=== PATIENT | male | born 1975 | race Caucasian/White ===

== ENCOUNTER 2016-04-29 09:41 | Inpatient (IN) | payer OTHER ==
[2016-04-29 10:58] VITALS: BMI 33.4
[2016-04-29] MEDS ORDERED: P-EPHED 60MG/TRIPROLIDI 2.5MG TABLET PO PRN (13:04)
[2016-04-29] MEDS ORDERED: MAG HYDROX/AL HYDROX/SIMETH 30 ML UNIT-DOSE CUP PO PRN (13:04)
[2016-04-29] MEDS ORDERED: ACETAMINOPHEN 325 MG TABLET (FP) PO PRN (13:04)
[2016-04-29] MEDS ORDERED: LOPERAMIDE HCL 2 MG CAPSULE PO PRN (13:04)
[2016-04-29] MEDS ORDERED: MAGNESIUM CITRATE 300 ML BOTTLE PO PRN (13:04)
[2016-04-29] MEDS ORDERED: MENTHOL/PHENOL 1 EACH UD MM PRN (13:04)
[2016-04-29] MEDS ORDERED: guaiFENesin/D-METHORPHAN HB 10 ML UNIT-DOSE CUPS PO PRN (13:04)
[2016-04-29] MEDS ORDERED: MAGNESIUM HYDROX 2400MG/30ML ORAL SUSPENSION 30 ML CUP PO PRN (13:04)
[2016-04-29] MEDS ORDERED: IBUPROFEN 400 MG TABLET (FP) PO PRN (13:04)
--- NOTE | 2016-04-29 13:04 | HP ---
DWAYNE SUAREZ Rehab Assess/Revision - Admission History Admitted to Rehab from: [facility] - Vital signs Vital Signs: Vital Signs Period Temp Pulse Resp BP Sys/Garcia Pulse Ox Last 24 Hr 96.8 F 108 20 119/68 - Findings Detox History & Physical reviewed: Yes Concur with findings: Yes
[2016-04-29] MEDS ORDERED: ALBUTEROL SO4 2.5/IPRATROPIUM 0.5 INH SOL 3 ML VIAL.NEB. NEB PRN (13:06)
[2016-04-29] MEDS ORDERED: ALBUTEROL SO4 2.5/IPRATROPIUM 0.5 INH SOL 3 ML VIAL.NEB. NEB ONE (15:00)
[2016-04-29] MEDS: AMOX TR/POT CLAV 875MG/125MG TABLETS (FP) PO SCH ×2 (17:15→21:31)
[2016-04-29] MEDS: hydrOXYzine PAMOATE 50 MG CAPSULE (FP) PO PRN ×2 (17:15→21:33)
[2016-04-29 20:12] LABS: URINE APPEARANCE CLEAR; URINE BILIRUBIN NEGATIVE (NEGATIVE); URINE BLOOD NEGATIVE (NEGATIVE); URINE COLOR STRAW; URINE GLUCOSE (UA) NEGATIVE (NEGATIVE); URINE KETONE NEGATIVE (NEGATIVE); URINE LEUK ESTERASE NEGATIVE (NEGATIVE); URINE NITRITE NEGATIVE (NEGATIVE); URINE PROTEIN NEGATIVE (NEGATIVE); URINE UROBILINOGEN NEGATIVE E.U./dl (0.2-1.0)
[2016-04-29] MEDS: THIAMINE HCL 100 MG TABLET (FP) PO SCH (21:31)
[2016-04-29] MEDS: BACITRACIN 0.9 GM PACKET TP SCH (21:32)
[2016-04-30] MEDS: hydrOXYzine PAMOATE 50 MG CAPSULE (FP) PO PRN ×5 (06:15→21:57)
--- NOTE | 2016-04-30 06:53 | HP ---
Psychiatrist Admission - Data Date of interview: 04/30/16 Admission source: 6N Identifying data: This is the first [facility] admission for this 40 years old single male, father of 2 children, unemployed, homeless Medical History: Significant for hypertension,bronchial asthma,GERD and a history of abdominal surgery (exploratory laparotomy) in 2009. Smokes cigarettes 1ppd Psychiatric History: Reports seeing a private psychiatrist located on [facility] in the [place] from 2001 to 2009. He was diagnosed with ADHD and Anxiety and prescribed Adderal 30 mg po daily and Xanax 2 mg po BID. 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 In 2009 he moved to [place] and stopped seeing psychiatrist. At present, Reports feeling anxious with inability to focus and experiencing poor sleep. Physical/Sexual Abuse/Trauma History: Denies history of physical, sexual abuse as well as DV relationship Additional Comment: Reports history of multiple midemeanor arrests. Denies being on probation at present Vital Signs: Vital Signs - 24 hr 04/29/16 04/30/16 10:55 00:30 Temperature 96.8 F L Pulse Rate 108 H Respiratory 20 20 Rate Blood Pressure 119/68 Allergies/Adverse Reactions: Allergies Allergy/AdvReac Type Severity Reaction Status Date / Time fish derived Allergy Severe Swelling Verified 04/29/16 13:11 shellfish derived Allergy Severe Swelling Verified 04/29/16 13:11 SEAFOOD Allergy Severe Swelling Uncoded 04/29/16 12:53 NKDA Allergy Uncoded 04/29/16 12:53 Date of last physical exam: 04/19/16 Concur with the findings of this exam: Yes - Substance Abuse/Tx History Hx Alcohol Use: Yes Hx Substance Use: Yes Substance Use Type: Alcohol (Started drinking alcohol at age 8, consumes 3x 6pk daily. Last drink on 04/19/16), Cocaine (Started using cocaine at age 12, consumes 7 grams 1-3 times in the last 30 days. Last used on 04/09/16) Hx Substance Use Treatment: Yes (Multiple inpt detox including 2 @ [facility]. First inpt rehab) - Admission Criteria Previous failed treatment: No Poor recovery environment: Yes Comorbidities: Yes Lacks judgement: Yes Mental Status Exam - Mental Status Exam Alert and Oriented to: Time, Place, Person Cognitive Function: Fair Patient Appearance: Well Groomed Mood: Anxious Affect: Appropriate Patient Behavior: Cooperative Speech Pattern: Clear Voice Loudness: Normal Thought Process: Intact Thought Disorder: Present Hallucinations: Denies Suicidal Ideation: Denies Homicidal Ideation: Denies Insight/Judgement: Fair Sleep: Poorly Appetite: Poor Muscle strength/Tone: Normal Gait/Station: Normal Psychiatric Findings - Problem List ([place] 1, 2,3) (1) Alcohol dependence with uncomplicated withdrawal Current Visit: No Status: Chronic (2) Cocaine dependence Current Visit: No Status: Chronic Qualifiers: Substance use status: uncomplicated Qualified Code(s): F14.20 - Cocaine dependence, uncomplicated (3) Nicotine dependence Current Visit: No Status: Chronic Qualifiers: Nicotine product type: cigarettes Substance use status: uncomplicated Qualified Code(s): F17.210 - Nicotine dependence, cigarettes, uncomplicated (4) ADHD (attention deficit hyperactivity disorder), inattentive type Current Visit: Yes Status: Acute (5) Anxiety disorder Current Visit: Yes Status: Acute (6) Asthma Current Visit: Yes Status: Acute (7) GERD (gastroesophageal reflux disease) Current Visit: Yes Status: Acute (8) HTN (hypertension) Current Visit: Yes Status: Acute - Initial Treatment Plan Initial Treatment Plan: 1) Start Stattera 40 mg po daily and Trazadone 100 mg po HS. Benefits vs Risks of medications discussed with patient and he agreed to try them. 2) Monitor progress
[2016-04-30] MEDS: BACITRACIN 0.9 GM PACKET TP SCH ×2 (09:46→21:09)
[2016-04-30] MEDS: PRENATAL VITAMINS W/ FOLIC ACID TABLET (FP) PO SCH (09:46)
[2016-04-30] MEDS: AMOX TR/POT CLAV 875MG/125MG TABLETS (FP) PO SCH ×2 (09:46→21:09)
[2016-04-30] MEDS: NICOTINE 21 MG/24 HOURS TOPICAL PATCH TD SCH (09:47)
[2016-04-30] MEDS: ALBUTEROL SO4 6.7 GM HFA INHALER IH PRN ×2 (09:48→21:10)
[2016-04-30] MEDS: ATOMOXETINE HCL 40 MG CAPSULE PO SCH (10:22)
[2016-04-30] MEDS: THIAMINE HCL 100 MG TABLET (FP) PO SCH (21:09)
[2016-04-30] MEDS: diphenhydrAMINE HCL 50 MG CAPSULE PO PRN (21:09)
[2016-04-30] MEDS ORDERED: traZODone HCL 100 MG TABLET (FP) PO SCH (22:00)
[2016-05-01] MEDS: diphenhydrAMINE HCL 50 MG CAPSULE PO PRN (01:00)
[2016-05-01] MEDS: hydrOXYzine PAMOATE 50 MG CAPSULE (FP) PO PRN ×5 (06:11→22:22)
[2016-05-01] MEDS: AMOX TR/POT CLAV 875MG/125MG TABLETS (FP) PO SCH ×2 (09:38→21:23)
[2016-05-01] MEDS: NICOTINE 21 MG/24 HOURS TOPICAL PATCH TD SCH (09:38)
[2016-05-01] MEDS: BACITRACIN 0.9 GM PACKET TP SCH ×2 (09:38→21:23)
[2016-05-01] MEDS: PRENATAL VITAMINS W/ FOLIC ACID TABLET (FP) PO SCH (09:38)
[2016-05-01] MEDS: ATOMOXETINE HCL 40 MG CAPSULE PO SCH (09:38)
[2016-05-01] MEDS: ALBUTEROL SO4 6.7 GM HFA INHALER IH PRN ×3 (14:37→21:23)
--- NOTE | 2016-05-01 15:10 | PN ---
Psychiatric Progress Note Vital Signs: Vital Signs Period Temp Pulse Resp BP Sys/Garcia Pulse Ox Last 24 Hr 97.3 F 83 18-18 133/75 Date of Session: 05/01/16 Chief Complaint:: Insomnia HPI: Patient addressing Alcohol, Cocaine comorbid with Nicotine Dependence, ADHD and Anxiety Disorder ROS: Asthma, GERD, HTN Current Medications: Active Medications Generic Name Dose Route Start Last Admin Trade Name Freq PRN Reason Stop Dose Admin Acetaminophen 650 mg 04/29/16 13:04 Tylenol - PO Q4H PRN PAIN Al Hydroxide/Mg Hydroxide 30 ml 04/29/16 13:04 Mylanta Oral Suspension - PO Q6H PRN DYSPEPSIA Albuterol Sulfate 2 puff 04/29/16 13:05 05/01/16 14:37 Ventolin Hfa Inhaler - IH 2 inh Q4H PRN Administration ASTHMA Albuterol/Ipratropium 1 amp 04/29/16 13:06 Duoneb - NEB Q6H PRN SHORTNESS OF BREATH Amoxicillin/Clavulanate Potassium 1 tab 04/29/16 15:00 05/01/16 09:38 Augmentin - 875mg Tablet PO 1 tab BID BRITTNEY Administration Atomoxetine HCl 40 mg 04/30/16 10:00 05/01/16 09:38 Strattera - PO 40 mg DAILY BRITTNEY Administration Bacitracin 0.9 gm 04/29/16 22:00 05/01/16 09:38 Bacitracin - TP 0.9 gm BID BRITTNEY Administration Diphenhydramine HCl 50 mg 04/29/16 13:04 05/01/16 01:00 Benadryl - PO 50 mg HSMR1 PRN Administration INSOMNIA Eucalyptus/Menthol/Phenol/Sorbitol 1 each 04/29/16 13:04 Cepastat Lozenge - MM Q4H PRN SORE THROAT Guaifenesin 10 ml 04/29/16 13:04 Robitussin Dm - PO Q6H PRN COUGH Hydroxyzine Pamoate 50 mg 04/29/16 13:04 05/01/16 14:37 Vistaril - PO 50 mg Q4H PRN Administration AGITATION Ibuprofen 400 mg 04/29/16 13:04 Motrin - PO Q6H PRN SEVERE PAIN Loperamide HCl 4 mg 04/29/16 13:04 Imodium - PO Q6H PRN DIARRHEA Magnesium Citrate 300 ml 04/29/16 13:04 Citroma - PO Q48H PRN CONSTIPATION Magnesium Hydroxide 30 ml 04/29/16 13:04 Milk Of Magnesia - PO DAILY PRN CONSTIPATION Nicotine 21 mg 04/30/16 10:00 05/01/16 09:38 Nicoderm Patch - TD 21 mg DAILY BRITTNEY Administration Multivit/Folic Acid/Iron 1 tab 04/30/16 10:00 05/01/16 09:38 Vitamins (Sjr) - PO 1 tab DAILY BRITTNEY Administration Pseudoephedrine/Triprolidine 1 combo 04/29/16 13:04 Actifed - PO TID PRN NASAL CONGESTION Thiamine HCl 100 mg 04/29/16 22:00 04/30/16 21:09 Vitamin B1 - PO 100 mg HS BRITTNEY Administration Trazodone HCl 150 mg 05/01/16 22:00 Desyrel - PO HS BRITTNEY Medication(s) Change(s): Increase Trazadone dosage to 150 mg po HS Current Side Effect: No Lab tests ordered: No Lab tests reviewed: Yes Provider note:: Patient reports experiencing difficulty to sleep despite taking Trazadone 100 mg po HS. In addition to educating patient on sleep hygiene, increasing Trazadone dosage to 150 mg po HS was discussed with patient and he agreed to try it Total face to face time:: 25 Mental Status Exam - Mental Status Exam Alert and Oriented to: Time, Place, Person Cognitive Function: Fair Patient Appearance: Well Groomed Mood: Hopeful, Euthymic Affect: Appropriate Patient Behavior: Cooperative Speech Pattern: Clear Voice Loudness: Normal Thought Process: Intact Thought Disorder: Not Present Hallucinations: Denies Suicidal Ideation: Denies Homicidal Ideation: Denies Insight/Judgement: Fair Sleep: Poorly Appetite: Good Muscle strength/Tone: Normal Gait/Station: Normal Psychiatric Treatment Plan - Problem List (1) Alcohol dependence with uncomplicated withdrawal Current Visit: No (2) Cocaine dependence Current Visit: No Qualifiers: Substance use status: uncomplicated Qualified Code(s): F14.20 - Cocaine dependence, uncomplicated (3) Nicotine dependence Current Visit: No Qualifiers: Nicotine product type: cigarettes Substance use status: uncomplicated Qualified Code(s): F17.210 - Nicotine dependence, cigarettes, uncomplicated (4) ADHD (attention deficit hyperactivity disorder), inattentive type Current Visit: Yes (5) Anxiety disorder Current Visit: Yes (6) Asthma Current Visit: Yes (7) GERD (gastroesophageal reflux disease) Current Visit: Yes (8) HTN (hypertension) Current Visit: Yes Initial treatment plan: 1) Discontinue Trazadone 100 mg po HS. 2) Start Trazadone 150 mg po HS for insomnia. 3) Monitor progress
[2016-05-01] MEDS: THIAMINE HCL 100 MG TABLET (FP) PO SCH (21:23)
[2016-05-01] MEDS: traZODone HCL 50 MG TABLET (FP) PO SCH (21:23)
[2016-05-02] MEDS: hydrOXYzine PAMOATE 50 MG CAPSULE (FP) PO PRN ×5 (05:51→22:44)
[2016-05-02] MEDS: BACITRACIN 0.9 GM PACKET TP SCH ×2 (09:40→21:33)
[2016-05-02] MEDS: AMOX TR/POT CLAV 875MG/125MG TABLETS (FP) PO SCH ×2 (09:40→21:34)
[2016-05-02] MEDS: PRENATAL VITAMINS W/ FOLIC ACID TABLET (FP) PO SCH (09:40)
[2016-05-02] MEDS: ATOMOXETINE HCL 40 MG CAPSULE PO SCH (09:41)
[2016-05-02] MEDS: ALBUTEROL SO4 6.7 GM HFA INHALER IH PRN ×2 (09:43→17:56)
[2016-05-02] MEDS: NICOTINE 21 MG/24 HOURS TOPICAL PATCH TD SCH (09:45)
[2016-05-02] MEDS: THIAMINE HCL 100 MG TABLET (FP) PO SCH (21:33)
[2016-05-02] MEDS: traZODone HCL 50 MG TABLET (FP) PO SCH (21:33)
[2016-05-03] MEDS: hydrOXYzine PAMOATE 50 MG CAPSULE (FP) PO PRN ×5 (05:47→23:25)
[2016-05-03] MEDS: ALBUTEROL SO4 6.7 GM HFA INHALER IH PRN ×2 (05:47→10:20)
[2016-05-03] MEDS: PRENATAL VITAMINS W/ FOLIC ACID TABLET (FP) PO SCH (10:18)
[2016-05-03] MEDS: BACITRACIN 0.9 GM PACKET TP SCH ×2 (10:21→21:20)
[2016-05-03] MEDS: AMOX TR/POT CLAV 875MG/125MG TABLETS (FP) PO SCH ×2 (10:21→21:21)
[2016-05-03] MEDS: ATOMOXETINE HCL 40 MG CAPSULE PO SCH (10:21)
[2016-05-03] MEDS: NICOTINE 21 MG/24 HOURS TOPICAL PATCH TD SCH (10:21)
[2016-05-03] MEDS: THIAMINE HCL 100 MG TABLET (FP) PO SCH (21:20)
[2016-05-03] MEDS: diphenhydrAMINE HCL 50 MG CAPSULE PO PRN (21:20)
[2016-05-03] MEDS: traZODone HCL 50 MG TABLET (FP) PO SCH (21:20)
[2016-05-04] MEDS: ALBUTEROL SO4 6.7 GM HFA INHALER IH PRN ×2 (05:54→21:08)
[2016-05-04] MEDS: hydrOXYzine PAMOATE 50 MG CAPSULE (FP) PO PRN ×5 (05:54→22:55)
[2016-05-04 06:38] VITALS: PULSE 87
[2016-05-04] MEDS: NICOTINE 21 MG/24 HOURS TOPICAL PATCH TD SCH (10:08)
[2016-05-04] MEDS: AMOX TR/POT CLAV 875MG/125MG TABLETS (FP) PO SCH ×2 (10:08→21:08)
[2016-05-04] MEDS: PRENATAL VITAMINS W/ FOLIC ACID TABLET (FP) PO SCH (10:08)
[2016-05-04] MEDS: BACITRACIN 0.9 GM PACKET TP SCH ×2 (10:08→21:08)
[2016-05-04] MEDS: ATOMOXETINE HCL 40 MG CAPSULE PO SCH (10:09)
[2016-05-04] MEDS: traZODone HCL 50 MG TABLET (FP) PO SCH (21:08)
[2016-05-04] MEDS: THIAMINE HCL 100 MG TABLET (FP) PO SCH (21:08)
[2016-05-04] MEDS: diphenhydrAMINE HCL 50 MG CAPSULE PO PRN (21:08)
[2016-05-05] MEDS: hydrOXYzine PAMOATE 50 MG CAPSULE (FP) PO PRN (06:25)
[2016-05-05 07:17] VITALS: BP 121/70; TEMP 97.7
[2016-05-05] MEDS: ATOMOXETINE HCL 40 MG CAPSULE PO SCH (09:24)
[2016-05-05] MEDS: BACITRACIN 0.9 GM PACKET TP SCH (09:24)
[2016-05-05] MEDS: NICOTINE 21 MG/24 HOURS TOPICAL PATCH TD SCH (09:24)
[2016-05-05] MEDS: PRENATAL VITAMINS W/ FOLIC ACID TABLET (FP) PO SCH (09:24)
[2016-05-05] MEDS: AMOX TR/POT CLAV 875MG/125MG TABLETS (FP) PO SCH (09:24)
--- NOTE | 2016-05-05 09:40 | PN ---
Psychiatric Progress Note Vital Signs: Vital Signs Period Temp Pulse Resp BP Sys/Garcia Pulse Ox Last 24 Hr 97.7 F 87 18-20 121/70 Date of Session: 05/05/16 Chief Complaint:: Psychiatrist Discharge Note(AMA) HPI: Patient addressing Alcohol and Cocaine Dependence comorbid with Nicotine Dependence, Anxiety Disorder and ADHD ROS: Asthma, HTN, GERD were medically managed Current Medications: Active Medications Generic Name Dose Route Start Last Admin Trade Name Freq PRN Reason Stop Dose Admin Acetaminophen 650 mg 04/29/16 13:04 Tylenol - PO Q4H PRN PAIN Al Hydroxide/Mg Hydroxide 30 ml 04/29/16 13:04 Mylanta Oral Suspension - PO Q6H PRN DYSPEPSIA Albuterol Sulfate 2 puff 04/29/16 13:05 05/04/16 21:08 Ventolin Hfa Inhaler - IH 2 inh Q4H PRN Administration ASTHMA Albuterol/Ipratropium 1 amp 04/29/16 13:06 Duoneb - NEB Q6H PRN SHORTNESS OF BREATH Amoxicillin/Clavulanate Potassium 1 tab 04/29/16 15:00 05/05/16 09:24 Augmentin - 875mg Tablet PO 1 tab BID BRITTNEY Administration Atomoxetine HCl 40 mg 04/30/16 10:00 05/05/16 09:24 Strattera - PO 40 mg DAILY BRITTNEY Administration Bacitracin 0.9 gm 04/29/16 22:00 05/05/16 09:24 Bacitracin - TP 0.9 gm BID BRITTNEY Administration Diphenhydramine HCl 50 mg 04/29/16 13:04 05/04/16 21:08 Benadryl - PO 50 mg HSMR1 PRN Administration INSOMNIA Eucalyptus/Menthol/Phenol/Sorbitol 1 each 04/29/16 13:04 Cepastat Lozenge - MM Q4H PRN SORE THROAT Guaifenesin 10 ml 04/29/16 13:04 Robitussin Dm - PO Q6H PRN COUGH Hydroxyzine Pamoate 50 mg 04/29/16 13:04 05/05/16 06:25 Vistaril - PO 50 mg Q4H PRN Administration AGITATION Ibuprofen 400 mg 04/29/16 13:04 Motrin - PO Q6H PRN SEVERE PAIN Loperamide HCl 4 mg 04/29/16 13:04 Imodium - PO Q6H PRN DIARRHEA Magnesium Citrate 300 ml 04/29/16 13:04 Citroma - PO Q48H PRN CONSTIPATION Magnesium Hydroxide 30 ml 04/29/16 13:04 Milk Of Magnesia - PO DAILY PRN CONSTIPATION Nicotine 21 mg 04/30/16 10:00 05/05/16 09:24 Nicoderm Patch - TD 21 mg DAILY BRITTNEY Administration Multivit/Folic Acid/Iron 1 tab 04/30/16 10:00 05/05/16 09:24 Vitamins (Sjr) - PO 1 tab DAILY BRITTNEY Administration Pseudoephedrine/Triprolidine 1 combo 04/29/16 13:04 Actifed - PO TID PRN NASAL CONGESTION Thiamine HCl 100 mg 04/29/16 22:00 05/04/16 21:08 Vitamin B1 - PO 100 mg HS BRITTNEY Administration Trazodone HCl 150 mg 05/01/16 22:00 05/04/16 21:08 Desyrel - PO 150 mg HS BRITTNEY Administration Current Side Effect: No Lab tests ordered: No Lab tests reviewed: Yes Provider note:: Patient requests to leave against medical advice Saying that he is not getting the treatment he needs. When asked to elaborate, he went on talking about issues with an evening shift nurse who refused to accomodate his need. He is on Strattera 40 mg po daily and Trazadone 150 mg po HS. Scripts for 30 days supply of medications are electronically transmitted to [facility] at [address] [place] [address]. He is psychiatrically stable for discharge today Total face to face time:: 25 Mental Status Exam - Mental Status Exam Alert and Oriented to: Time, Place, Person Cognitive Function: Fair Patient Appearance: Well Groomed Mood: Hopeful, Euthymic Affect: Appropriate Patient Behavior: Cooperative Speech Pattern: Clear Voice Loudness: Normal Thought Process: Intact Thought Disorder: Not Present Hallucinations: Denies Suicidal Ideation: Denies Homicidal Ideation: Denies Insight/Judgement: Poor Sleep: Fair Appetite: Good Muscle strength/Tone: Normal Gait/Station: Normal Psychiatric Treatment Plan - Problem List (1) Alcohol dependence with uncomplicated withdrawal Current Visit: No (2) Cocaine dependence Current Visit: No Qualifiers: Substance use status: uncomplicated Qualified Code(s): F14.20 - Cocaine dependence, uncomplicated (3) Nicotine dependence Current Visit: No Qualifiers: Nicotine product type: cigarettes Substance use status: uncomplicated Qualified Code(s): F17.210 - Nicotine dependence, cigarettes, uncomplicated (4) ADHD (attention deficit hyperactivity disorder), inattentive type Current Visit: Yes (5) Anxiety disorder Current Visit: Yes (6) Asthma Current Visit: Yes (7) GERD (gastroesophageal reflux disease) Current Visit: Yes (8) HTN (hypertension) Current Visit: Yes Initial treatment plan: Patient is discharged AMA
== END 2016-05-05 09:30 | disposition left against medical advice (07) | DRG 770 ==
LOC: YASAS 09:41 → Y3W 14:36
PROVIDERS: ADMIT Psychiatry & Neurology Psychiatry; ATTEND Psychiatry & Neurology Psychiatry
PROC: HZ42ZZZ Group Counseling for Substance Abuse Treatment, Cognitive-Behavioral (ICD-10-PCS; principal; 2016-04-29)
DX: F10.20 Alcohol dependence, uncomplicated (principal); F14.20 Cocaine dependence, uncomplicated; F17.210 Nicotine dependence, cigarettes, uncomplicated; F41.9 Anxiety disorder, unspecified; F90.0 Attention-deficit hyperactivity disorder, predominantly inattentive type; J45.909 Unspecified asthma, uncomplicated; I10 Essential (primary) hypertension; K21.9 Gastro-esophageal reflux disease without esophagitis
CPT/HCPCS: 81003; 93005; 93010

== ENCOUNTER 2016-05-30 14:58 | Inpatient (IN) | payer OTHER ==
[2016-05-30 19:43] VITALS: BMI 35.6
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
[2016-05-30] MEDS ORDERED: MAG HYDROX/AL HYDROX/SIMETH 30 ML UNIT-DOSE CUP PO PRN (21:31)
[2016-05-30] MEDS ORDERED: IBUPROFEN 400 MG TABLET (FP) PO PRN (21:31)
[2016-05-30] MEDS ORDERED: MENTHOL/PHENOL 1 EACH UD MM PRN (21:31)
[2016-05-30] MEDS ORDERED: MAGNESIUM HYDROX 2400MG/30ML ORAL SUSPENSION 30 ML CUP PO PRN (21:31)
[2016-05-30] MEDS ORDERED: P-EPHED 60MG/TRIPROLIDI 2.5MG TABLET PO PRN (21:31)
[2016-05-30] MEDS ORDERED: guaiFENesin/D-METHORPHAN HB 10 ML UNIT-DOSE CUPS PO PRN (21:31)
[2016-05-30] MEDS ORDERED: LOPERAMIDE HCL 2 MG CAPSULE PO PRN (21:31)
[2016-05-30] MEDS ORDERED: MAGNESIUM CITRATE 300 ML BOTTLE PO PRN (21:31)
[2016-05-30] MEDS ORDERED: ACETAMINOPHEN 325 MG TABLET (FP) PO PRN (21:31)
[2016-05-30] MEDS ORDERED: NICOTINE POLACRILEX 2 MG GUM BUC PRN (21:38)
[2016-05-30] MEDS ORDERED: ALBUTEROL SO4 2.5/IPRATROPIUM 0.5 INH SOL 3 ML VIAL.NEB. NEB PRN (21:43)
[2016-05-30] MEDS ORDERED: cloNIDine HCL 0.1 MG TABLET PO PRN (21:44)
[2016-05-31] MEDS: chlordiazePOXIDE HCL 25 MG CAPSULE PO SCH ×5 (03:30→22:07)
[2016-05-31] MEDS: BUDESONIDE/FORMETEROL FUMARATE 80/4.5 mcg INHALER IH SCH ×3 (03:30→22:06)
[2016-05-31] MEDS: THIAMINE HCL 100 MG TABLET (FP) PO SCH ×2 (03:31→22:05)
[2016-05-31] MEDS: PRENATAL VITAMINS W/ FOLIC ACID TABLET (FP) PO SCH (10:23)
[2016-05-31] MEDS: NICOTINE 14 MG/24 HOURS TOPICAL PATCH TD SCH (10:23)
[2016-05-31] MEDS: ALBUTEROL SO4 6.7 GM HFA INHALER IH PRN ×3 (10:24→22:06)
[2016-05-31 10:54] LABS: ALBUMIN 3.9 g/dl (3.4-5.0); CALCIUM 8.8 mg/dL (8.5-10.1)
[2016-05-31 10:59] LABS: ALK PHOS 75 U/L (45-117); ANION GAP 12 (8-16); BILIRUBIN,TOTAL 0.3 mg/dL (0.2-1.0); CO2 25 mmol/L (21-32); CREATININE 0.9 mg/dL (0.7-1.3); GLUCOSE,RANDOM 91 mg/dL (74-106); MCH 33.5 pg (25.7-33.7); MCHC 33.8 g/dl (32.0-35.9); MEAN CELL VOLUME 98.9 fl (80-96); MEAN PLT VOLUME 7.5 fl (7.5-11.1); PLATELET COUNT 210 K/MM3 (134-434); RDW 13.2 % (11.9-15.9); SGOT/AST 20 U/L (15-37); SGPT/ALT 29 U/L (12-78); TOT PROT 7.5 g/dl (6.4-8.2); WHITE BLOOD COUNT 5.4 K/mm3 (4.0-10.0)
--- NOTE | 2016-05-31 11:46 | PN ---
S CIWA - CIWA Score Nausea/Vomitin Muscle Tremors: 4-Moderate,w/Arms Extend Anxiety: 4-Mod. Anxious/Guarded Agitation: 4-Moderately Restless Paroxysmal Sweats: 3 Orientation: 0-Oriented Tacttile Disturbances: 1-Very Mild Itch/Numbness Auditory Disturbances: 0-None Visual Disturbances: 0-None Headache: 1-Very Mild CIWA-Ar Total Score: 20 BHS Progress Note (SOAP) Subjective: nausea, sweats, interrupted sleep, anxiety, tremors Objective: 05/31/16 11:44 Vital Signs - 24 hr 05/30/16 05/30/16 05/31/16 19:40 23:46 00:30 Temperature 97.6 F 97.7 F Pulse Rate 122 H 121 H Respiratory 20 18 20 Rate Blood Pressure 134/73 131/72 05/31/16 05/31/16 03:30 06:42 Temperature 97.9 F Pulse Rate 120 H Respiratory 20 18 Rate Blood Pressure 117/70 Laboratory Tests 05/31/16 05/31/16 08:00 08:00 WBC 5.4 RBC 4.30 Hgb 14.4 Hct 42.6 MCV 98.9 H MCHC 33.8 RDW 13.2 Plt Count 210 MPV 7.5 Sodium 141 Potassium 3.7 Chloride 104 Carbon Dioxide 25 Anion Gap 12 BUN 17 D Creatinine 0.9 D Creat Clearance w eGFR > 60 Random Glucose 91 Calcium 8.8 Total Bilirubin 0.3 D AST 20 D ALT 29 D Alkaline Phosphatase 75 Total Protein 7.5 Albumin 3.9 Assessment: 05/31/16 11:44 withdrawal sx, tachycardia Plan: cont detox, prn librium, clonidine, fluids
[2016-05-31] MEDS ORDERED: chlordiazePOXIDE HCL 25 MG CAPSULE PO ONE (13:00)
--- NOTE | 2016-05-31 14:20 | CONSULT ---
[facility] Psychiatric Consult - Data Date of interview: 05/31/16 Admission source: [facility] Identifying data: New admission to [facility] for this 40 y/o male seeking detox treatment on for alcohol and cocaine dependence.Patient is single,a father of two,domiciled,unemployed and supported on Public Assistance. Substance Abuse History: - Smoking Cessation. Smoking history: Current every day smoker. Have you smoked in the past 12 months: Yes. Aproximately how many cigarettes per day: 8. Cigars Per Day: 0. Hx Chewing Tobacco Use: No. Initiated information on smoking cessation: Yes. 'Breaking Loose' booklet given : 05/30/16. - Substance & Tx. History. Hx Alcohol Use: Yes. Hx Substance Use : No. Substance Use Type: Alcohol. Hx Substance Use Treatment: Yes. - Substances Abused. Alcohol. Route: Oral. Frequency: Daily. Amount used: 360 OZ BEER. Age of first use: 8. Date of Last Use: 05/30/16. Confirmed by the patient in this interview. Medical History: Significant for hypertension,bronchial asthma,GERD and a history of abdominal surgery (exploratory laparotomy) in 2009. Psychiatric History: Patient denies. Physical/Sexual Abuse/Trauma History: Patient denies. Additional Comment: Urine Drug Screen Results: BZO-Benzodiazepines.Noted. Mental Status Exam - Mental Status Exam Alert and Oriented to: Time, Place, Person Cognitive Function: Good Patient Appearance: Well Groomed Mood: Hopeful, Euthymic Affect: Appropriate, Normal Range Patient Behavior: Appropriate, Cooperative Speech Pattern: Clear, Appropriate Voice Loudness: Normal Thought Process: Goal Oriented Thought Disorder: Not Present Hallucinations: Denies Suicidal Ideation: Denies Homicidal Ideation: Denies Insight/Judgement: Poor Sleep: Poorly, Difficulty falling asleep (requests trazodone) Appetite: Good Muscle strength/Tone: Normal Gait/Station: Normal Psychiatric Findings - Problem List ([place] 1, 2,3) (1) Alcohol dependence with uncomplicated withdrawal Current Visit: Yes Status: Acute (2) Nicotine dependence Current Visit: Yes Status: Acute Qualifiers: Nicotine product type: cigarettes Substance use status: in withdrawal Qualified Code(s): F17.213 - Nicotine dependence, cigarettes, with withdrawal (3) HTN (hypertension) Current Visit: Yes Status: Chronic Qualifiers: Hypertension type: essential hypertension Qualified Code(s): I10 - Essential (primary) hypertension (4) GERD (gastroesophageal reflux disease) Current Visit: Yes Status: Chronic (5) Asthma Current Visit: Yes Status: Chronic Qualifiers: Asthma severity: mild intermittent Asthma complication type: with status asthmaticus Qualified Code(s): J45.22 - Mild intermittent asthma with status asthmaticus (6) Insomnia Current Visit: Yes Status: Chronic - Initial Treatment Plan Initial Treatment Plan: Psychoeducation.Detoxification.Trazodone 100 mg po hs.Side effects/benefits discussed with the patient.Patient made aware of risk of priapism and he is instructed to stop that medication/seek immediate medical assistance if occurrence of erectile phenomena such as painful/prolonged erection.He agrees with this careplan.Observation.
--- NOTE | 2016-05-31 18:28 | EKG ---
Test Reason : Blood Pressure : / mmHG Vent. Rate : 111 BPM Atrial Rate : 111 BPM P-R Int : 160 ms QRS Dur : 080 ms QT Int : 316 ms P-R-T Axes : 051 013 031 degrees QTc Int : 429 ms SINUS TACHYCARDIA OTHERWISE NORMAL ECG WHEN COMPARED WITH ECG OF 09-APR-2016 17:24, NO SIGNIFICANT CHANGE WAS FOUND Confirmed by SELWYN QUIGLEY MD ([id number]) on 05/31/2016 6:28:22 PM Referred By: Confirmed By:SELWYN QUIGLEY MD
[2016-05-31] MEDS: hydrOXYzine PAMOATE 50 MG CAPSULE (FP) PO PRN (19:34)
[2016-05-31] MEDS: traZODone HCL 100 MG TABLET (FP) PO SCH (22:07)
[2016-06-01] MEDS: ALBUTEROL SO4 6.7 GM HFA INHALER IH PRN ×2 (05:35→17:16)
[2016-06-01] MEDS: chlordiazePOXIDE HCL 25 MG CAPSULE PO SCH ×3 (05:35→17:15)
[2016-06-01] MEDS: chlordiazePOXIDE HCL 25 MG CAPSULE PO PRN ×2 (07:36→12:48)
[2016-06-01] MEDS: NICOTINE 14 MG/24 HOURS TOPICAL PATCH TD SCH (10:21)
[2016-06-01] MEDS: PRENATAL VITAMINS W/ FOLIC ACID TABLET (FP) PO SCH (10:21)
[2016-06-01] MEDS: BUDESONIDE/FORMETEROL FUMARATE 80/4.5 mcg INHALER IH SCH ×2 (10:22→22:20)
[2016-06-01 13:42] LABS: URINE APPEARANCE CLEAR; URINE BILIRUBIN NEGATIVE (NEGATIVE); URINE BLOOD NEGATIVE (NEGATIVE); URINE COLOR LTYELLOW; URINE GLUCOSE (UA) NEGATIVE (NEGATIVE); URINE KETONE NEGATIVE (NEGATIVE); URINE LEUK ESTERASE NEGATIVE (NEGATIVE); URINE NITRITE NEGATIVE (NEGATIVE); URINE PROTEIN NEGATIVE (NEGATIVE); URINE UROBILINOGEN NEGATIVE E.U./dl (0.2-1.0)
--- NOTE | 2016-06-01 15:17 | PN ---
S CIWA - CIWA Score Nausea/Vomitin Muscle Tremors: 4-Moderate,w/Arms Extend Anxiety: 4-Mod. Anxious/Guarded Agitation: 4-Moderately Restless Paroxysmal Sweats: No Perspiration Orientation: 0-Oriented Tacttile Disturbances: 1-Very Mild Itch/Numbness Auditory Disturbances: 0-None Visual Disturbances: 0-None Headache: 2-Mild CIWA-Ar Total Score: 18 BHS Progress Note (SOAP) Subjective: Tremor, anxious, nausea, sweating, interrupted sleep Objective: 06/01/16 15:16 Last Vital Signs Temp Pulse Resp BP Pulse Ox 97.5 F L 107 H 18 137/86 06/01/16 14:12 06/01/16 14:12 06/01/16 14:12 06/01/16 14:12 Laboratory Tests 05/31/16 05/31/16 05/31/16 08:00 08:00 08:00 WBC 5.4 RBC 4.30 Hgb 14.4 Hct 42.6 MCV 98.9 H MCHC 33.8 RDW 13.2 Plt Count 210 MPV 7.5 Sodium 141 Potassium 3.7 Chloride 104 Carbon Dioxide 25 Anion Gap 12 BUN 17 D Creatinine 0.9 D Creat Clearance w eGFR > 60 Random Glucose 91 Calcium 8.8 Total Bilirubin 0.3 D AST 20 D ALT 29 D Alkaline Phosphatase 75 Total Protein 7.5 Albumin 3.9 Urine Color Urine Appearance Urine pH Ur Specific [place] Urine Protein Urine Glucose (UA) Urine Ketones Urine Blood Urine Nitrite Urine Bilirubin Urine Urobilinogen Ur Leukocyte Esterase RPR Titer Nonreactive 06/01/16 13:15 WBC RBC Hgb Hct MCV MCHC RDW Plt Count MPV Sodium Potassium Chloride Carbon Dioxide Anion Gap BUN Creatinine Creat Clearance w eGFR Random Glucose Calcium Total Bilirubin AST ALT Alkaline Phosphatase Total Protein Albumin Urine Color Ltyellow Urine Appearance Clear Urine pH 6.0 Ur Specific [place] 1.011 Urine Protein Negative Urine Glucose (UA) Negative Urine Ketones Negative Urine Blood Negative Urine Nitrite Negative Urine Bilirubin Negative Urine Urobilinogen Negative Ur Leukocyte Esterase Negative RPR Titer Labs noted Assessment: 06/01/16 15:17 Withdrawal symptoms Plan: Continue detox
[2016-06-01] MEDS: hydrOXYzine PAMOATE 50 MG CAPSULE (FP) PO PRN (18:43)
[2016-06-01] MEDS: traZODone HCL 100 MG TABLET (FP) PO SCH (22:19)
[2016-06-01] MEDS: THIAMINE HCL 100 MG TABLET (FP) PO SCH (22:19)
[2016-06-01] MEDS: diphenhydrAMINE HCL 50 MG CAPSULE PO PRN (22:20)
[2016-06-01] MEDS: chlordiazePOXIDE 5 MG CAPSULE PO SCH (22:20)
[2016-06-02] MEDS: chlordiazePOXIDE 5 MG CAPSULE PO SCH ×3 (05:30→17:22)
[2016-06-02] MEDS: ALBUTEROL SO4 6.7 GM HFA INHALER IH PRN ×3 (05:30→22:20)
[2016-06-02] MEDS: hydrOXYzine PAMOATE 50 MG CAPSULE (FP) PO PRN ×3 (08:47→19:37)
[2016-06-02] MEDS: chlordiazePOXIDE HCL 25 MG CAPSULE PO PRN ×2 (08:47→13:08)
[2016-06-02] MEDS: BUDESONIDE/FORMETEROL FUMARATE 80/4.5 mcg INHALER IH SCH ×2 (10:18→22:20)
[2016-06-02] MEDS: NICOTINE 14 MG/24 HOURS TOPICAL PATCH TD SCH (10:18)
[2016-06-02] MEDS: PRENATAL VITAMINS W/ FOLIC ACID TABLET (FP) PO SCH (10:18)
--- NOTE | 2016-06-02 11:23 | PN ---
BHS Progress Note (SOAP) Subjective: ANXIETY,SWEATS,FATIGUE. Objective: 06/02/16 11:23 Vital Signs Temperature 97.0 F L 06/02/16 10:57 Pulse Rate 92 H 06/02/16 10:57 Respiratory Rate 20 06/02/16 10:57 Blood Pressure 136/81 06/02/16 10:57 O2 Sat by Pulse Oximetry (%) Assessment: 06/02/16 11:23 WITHDRAWAL SX Plan: CONTINUE DETOX
[2016-06-02] MEDS: THIAMINE HCL 100 MG TABLET (FP) PO SCH (22:20)
[2016-06-02] MEDS: traZODone HCL 100 MG TABLET (FP) PO SCH (22:21)
[2016-06-02] MEDS: chlordiazePOXIDE HCL 10 MG CAPSULE PO SCH (22:21)
[2016-06-02] MEDS: diphenhydrAMINE HCL 50 MG CAPSULE PO PRN (22:21)
[2016-06-03] MEDS: chlordiazePOXIDE HCL 10 MG CAPSULE PO SCH (05:34)
[2016-06-03 06:41] VITALS: BP 131/73; PULSE 94; TEMP 96.1
[2016-06-03] MEDS: PRENATAL VITAMINS W/ FOLIC ACID TABLET (FP) PO SCH (09:09)
[2016-06-03] MEDS: BUDESONIDE/FORMETEROL FUMARATE 80/4.5 mcg INHALER IH SCH (09:09)
[2016-06-03] MEDS: NICOTINE 14 MG/24 HOURS TOPICAL PATCH TD SCH (09:10)
--- NOTE | 2016-06-03 12:08 | DS ---
[facility] Detox Discharge Summary Admission Date: 05/30/16 Discharge Date: 06/03/16 - History Present History: Alcohol Dependence Additional Comments: DETOX COMPLETED Pertinent Past History: ASTHMA HYPERTENSION GERD FATTY LIVER HX DEPRESSION/ANXIETY - Physical Exam Results Vital Signs: Vital Signs Temperature 96.1 F L 06/03/16 06:41 Pulse Rate 94 H 06/03/16 06:41 Respiratory Rate 18 06/03/16 06:41 Blood Pressure 131/73 06/03/16 06:41 O2 Sat by Pulse Oximetry (%) Pertinent Admission Physical Exam Findings: WITHDRAWAL SX Laboratory Last Values WBC 5.4 K/mm3 (4.0-10.0) 05/31/16 08:00 RBC 4.30 M/mm3 (4.00-5.60) 05/31/16 08:00 Hgb 14.4 GM/dL (11.7-16.9) 05/31/16 08:00 Hct 42.6 % (35.4-49) 05/31/16 08:00 MCV 98.9 fl (80-96) H 05/31/16 08:00 MCHC 33.8 g/dl (32.0-35.9) 05/31/16 08:00 RDW 13.2 % (11.9-15.9) 05/31/16 08:00 Plt Count 210 K/MM3 (134-434) 05/31/16 08:00 MPV 7.5 fl (7.5-11.1) 05/31/16 08:00 Sodium 141 mmol/L (136-145) 05/31/16 08:00 Potassium 3.7 mmol/L (3.5-5.1) 05/31/16 08:00 Chloride 104 mmol/L (98-107) 05/31/16 08:00 Carbon Dioxide 25 mmol/L (21-32) 05/31/16 08:00 Anion Gap 12 (8-16) 05/31/16 08:00 BUN 17 mg/dL (7-18) D 05/31/16 08:00 Creatinine 0.9 mg/dL (0.7-1.3) D 05/31/16 08:00 Creat Clearance w eGFR > 60 (>60) 05/31/16 08:00 Random Glucose 91 mg/dL (74-106) 05/31/16 08:00 Calcium 8.8 mg/dL (8.5-10.1) 05/31/16 08:00 Total Bilirubin 0.3 mg/dL (0.2-1.0) D 05/31/16 08:00 AST 20 U/L (15-37) D 05/31/16 08:00 ALT 29 U/L (12-78) D 05/31/16 08:00 Alkaline Phosphatase 75 U/L (45-117) 05/31/16 08:00 Total Protein 7.5 g/dl (6.4-8.2) 05/31/16 08:00 Albumin 3.9 g/dl (3.4-5.0) 05/31/16 08:00 Urine Color Ltyellow 06/01/16 13:15 Urine Appearance Clear 06/01/16 13:15 Urine pH 6.0 (5.0-8.0) 06/01/16 13:15 Ur Specific [place] 1.011 (1.001-1.035) 06/01/16 13:15 Urine Protein Negative (NEGATIVE) 06/01/16 13:15 Urine Glucose (UA) Negative (NEGATIVE) 06/01/16 13:15 Urine Ketones Negative (NEGATIVE) 06/01/16 13:15 Urine Blood Negative (NEGATIVE) 06/01/16 13:15 Urine Nitrite Negative (NEGATIVE) 06/01/16 13:15 Urine Bilirubin Negative (NEGATIVE) 06/01/16 13:15 Urine Urobilinogen Negative E.U./dl (0.2-1.0) 06/01/16 13:15 Ur Leukocyte Esterase Negative (NEGATIVE) 06/01/16 13:15 RPR Titer Nonreactive (NONREACTIVE) 05/31/16 08:00 - Treatment Hospital Course: Detox Protocol Followed, Detoxed Safely, Responded well, Discharged Condition Good - Medication Discharge Medications: Ambulatory Orders Albuterol Sulfate Inhaler - [Ventolin HFA Inhaler -] 2 inh PO Q4H PRN 10/10/14 Amox-Tr/K Cl [Augmentin - 875Mg Tablet] 1 tab PO Q12H 04/29/16 Atomoxetine HCl [Strattera -] 40 mg PO DAILY #30 capsule 05/05/16 Trazodone HCl [Desyrel -] 150 mg PO HS #30 tablet 05/05/16 Trazodone HCl 100 mg PO HS #30 tablet 05/31/16 - Diagnosis (1) Alcohol dependence with uncomplicated withdrawal Status: Acute (2) Nicotine dependence Status: Chronic Qualifiers: Nicotine product type: cigarettes Substance use status: in withdrawal Qualified Code(s): F17.213 - Nicotine dependence, cigarettes, with withdrawal (3) Asthma Status: Chronic Qualifiers: Asthma severity: mild intermittent Asthma complication type: with status asthmaticus Qualified Code(s): J45.22 - Mild intermittent asthma with status asthmaticus (4) GERD (gastroesophageal reflux disease) Status: Chronic Qualifiers: Esophagitis presence: without esophagitis Qualified Code(s): K21.9 - Gastro-esophageal reflux disease without esophagitis (5) HTN (hypertension) Status: Chronic Qualifiers: Hypertension type: essential hypertension Qualified Code(s): I10 - Essential (primary) hypertension (6) Insomnia Status: Chronic - AMA Did Patient Leave Against Medical Advice: No
== END 2016-06-03 09:15 | disposition home or self-care (01) | DRG 775 ==
LOC: YASAS 14:58 → Y3N 22:00
PROVIDERS: ADMIT Internal Medicine; ATTEND Internal Medicine
PROC: HZ2ZZZZ Detoxification Services for Substance Abuse Treatment (ICD-10-PCS; principal; 2016-06-03)
DX: F10.230 Alcohol dependence with withdrawal, uncomplicated (principal); F17.213 Nicotine dependence, cigarettes, with withdrawal; I10 Essential (primary) hypertension; J45.22 Mild intermittent asthma with status asthmaticus; K21.9 Gastro-esophageal reflux disease without esophagitis; G47.00 Insomnia, unspecified
CPT/HCPCS: 36415; 80053; 81003; 85027; 86593; 93005; 93010

== ENCOUNTER 2016-06-30 09:28 | Inpatient (IN) | payer OTHER ==
[2016-06-30 09:55] VITALS: BMI 35.6
--- NOTE | 2016-06-30 12:58 | HP ---
COWS - Scale Resting Pulse: 2= NM 101-120 Sweatin= Chills/Flushing Restless Observation: 3= Extraneous Movement Pupil Size: 2= Moderately Dilated Bone or Joint Aches: 4=Acute Joint/Muscle Pain Runny Nose/ Eye Tearin= Nasal Congestion GI Upset > 30mins: 3= Vomiting/Diarrhea Tremor Observation: 2= Slight Tremor Visible Yawning Observation: 1= 1-2x During Session Anxiety or Irritability: 2=Irritable/Anxious Goose Flesh Skin: 0=Smooth Skin COWS Score: 21 CIWA Score - CIWA Score Nausea/Vomitin (N/V/D) Muscle Tremors: 4-Moderate,w/Arms Extend Anxiety: 4-Mod. Anxious/Guarded Agitation: 4-Moderately Restless Paroxysmal Sweats: 2 Orientation: 0-Oriented Tacttile Disturbances: 3-Moderate Itch/Numb/Burn Auditory Disturbances: 0-None Visual Disturbances: 0-None Headache: 0-None Present CIWA-Ar Total Score: 22 Admission ROS S - HPI Chief Complaint: DETOX TX FOR ALCOHOL AND HEROIN DEPENDENCE Allergies/Adverse Reactions: Allergies Allergy/AdvReac Type Severity Reaction Status Date / Time fish derived Allergy Severe Swelling Verified 06/30/16 10:34 shellfish derived Allergy Severe Swelling Verified 06/30/16 10:34 SEAFOOD Allergy Severe Swelling Uncoded 06/30/16 10:34 NKDA Allergy Uncoded 06/30/16 10:34 History of Present Illness: 40 Y/O H/M WITH A HX OF ALCOHOL,HEROIN AND COCAINE DEPENDENCE SEEKING DETOX TX Exam Limitations: No Limitations, Intoxication - Ebola screening Have you traveled outside of the country in the last 21 days: No Have you had contact with anyone from an Ebola affected area: No Have you been sick,other than usual withdrawal symptoms: No Do you have a fever: No - Review of Systems Constitutional: Chills, Diaphoresis, Loss of Appetite, Night Sweats, Changes in sleep EENT: reports: Blurred Vision, Tearing, Nose Congestion Respiratory: reports: Shortness of Breath (HX ASTHMA), Wheezing Cardiac: reports: Lightheadedness GI: reports: Constipated, Diarrhea, Nausea, Poor Appetite, Poor Fluid Intake, Vomiting : reports: Dysuria Musculoskeletal: reports: Back Pain (LBP), Muscle Pain Integumentary: reports: Bruising (LEFT AND RIGHT KNEES DUE TO FALL ON 3/4/17 DUE TO ALCOHOL INTOXICATION-"[facility]") Neuro: reports: Tremors, Unsteady Gait, Dizziness Endocrine: reports: No Symptoms Reported Hematology: reports: No Symptoms Reported Psychiatric: reports: Orientated x3, Anxious, Depressed Other Systems: Reviewed and Negative Patient History - Patient Medical History Hx Anemia: No Hx Asthma: Yes (Pt is on MDI.) Hx Chronic Obstructive Pulmonary Disease (COPD): No Hx Cancer: No Hx Cardiac Disorders: No Hx Congestive Heart Failure: No Hx Hypertension: Yes (not on meds.) Hx Hypercholesterolemia: No Hx Pacemaker: No HX Cerebrovascular Accident: No Hx Seizures: No Hx Dementia: No Hx Diabetes: No Hx Gastrointestinal Disorders: No Hx Liver Disease: Yes (FATTY LIVER) Hx Genitourinary Disorders: No Hx Sexually Transmitted Disorders: No Hx Renal Disease (ESRD): No Hx Thyroid Disease: No Hx Human Immunodeficiency Virus (HIV): No (NEGATIVE HX) Hx Hepatitis C: No (NEGATIVE TEST HX) Hx Depression: Yes Hx Suicide Attempt: No Hx Bipolar Disorder: No Hx Schizophrenia: No - Patient Surgical History Past Surgical History: Yes Hx Neurologic Surgery: No Hx Cataract Extraction: No Hx Cardiac Surgery: No Hx Lung Surgery: No Hx Breast Surgery: No Hx Breast Biopsy: No Hx Abdominal Surgery: Yes (09/2015 colon resection for strangulated colon.) Hx Appendectomy: No Hx Cholecystectomy: No Hx Genitourinary Surgery: No Hx Orthopedic Surgery: No Anesthesia Reaction: No - PPD History Previous Implant?: Yes Documented Results: Negative w/proof Implanted On Prior [facility] Admission?: Yes Date: 04/21/16 Results: 0 mm PPD to be Administered?: No - Reproductive History Patient is a Female of Child Bearing Age (11 -55 yrs old): No (MALE) - Smoking Cessation Smoking history: Current every day smoker Have you smoked in the past 12 months: Yes Aproximately how many cigarettes per day: 10 Cigars Per Day: 0 Hx Chewing Tobacco Use: No Initiated information on smoking cessation: Yes 'Breaking Loose' booklet given: 06/30/16 - Substance & Tx. History Hx Alcohol Use: Yes (BEER) Hx Substance Use: Yes (HEROIN/COCAINE) Substance Use Type: Alcohol, Cocaine, Heroin Hx Substance Use Treatment: Yes ([facility]-DETOX) - Substances Abused Heroin Route: Inhalation Frequency: Daily Amount used: 6 bags Age of first use: 40 Date of Last Use: 06/30/16 Alcohol Route: Oral Frequency: Daily Amount used: 18 pk beer Age of first use: 8 Date of Last Use: 06/30/16 Cocaine Route: Inhalation Frequency: 1-3 times last 30 days Amount used: 8 ball Age of first use: 12 Date of Last Use: 05/01/16 Family Disease History - Family Disease History Family Disease History: Diabetes: Grandparent, Father, Heart Disease: Grandparent, Father, Other: Brother (HEROIN DEPENDENT ) Admission Physical Exam [facility] - Vital Signs Vital Signs: Vital Signs - 24 hr 06/30/16 09:51 Temperature 97.7 F Pulse Rate 103 H Respiratory 20 Rate Blood Pressure 140/90 - Physical General Appearance: Yes: Moderate Distress, Alcohol on Breath, Intoxicated, Obese, Irritable, Sweating, Anxious HEENTM: Yes: EOMI, Normocephalic, SELENA, Pharynx Normal, Nasal Congestion, Rhinorrhea Respiratory: Yes: Chest Non-Tender, Normal Breath Sounds, No Respiratory Distress, Rhonchi, Wheezing Neck: Yes: Supple, Trachea in good position Breast: Yes: Breast Exam Deferred Cardiology: Yes: Regular Rhythm, S1, S2, Tachycardia Abdominal: Yes: Normal Bowel Sounds, Non Tender, Soft Genitourinary: Yes: Other (N/C) Back: Yes: Within Normal Limits Musculoskeletal: Yes: full range of Motion, Gait Steady Extremities: Yes: Normal Range of Motion, Non-Tender, Tremors 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 NML intact, Fully Oriented, Alert Integumentary: Yes: Dry, Warm Lymphatic: Yes: Within Normal Limits - Diagnostic (1) Alcohol dependence with uncomplicated withdrawal Current Visit: Yes Status: Acute (2) Asthma Current Visit: Yes Status: Chronic Qualifiers: Asthma severity: mild intermittent Asthma complication type: with status asthmaticus Qualified Code(s): J45.22 - Mild intermittent asthma with status asthmaticus (3) Cocaine dependence Current Visit: No Status: Inactive Qualifiers: Substance use status: uncomplicated Qualified Code(s): F14.20 - Cocaine dependence, uncomplicated (4) Depression with anxiety Current Visit: Yes Status: Chronic (5) GERD (gastroesophageal reflux disease) Current Visit: Yes Status: Chronic Qualifiers: Esophagitis presence: without esophagitis Qualified Code(s): K21.9 - Gastro-esophageal reflux disease without esophagitis (6) HTN (hypertension) Current Visit: Yes Status: Chronic Qualifiers: Hypertension type: essential hypertension Qualified Code(s): I10 - Essential (primary) hypertension (7) Nicotine dependence Current Visit: Yes Status: Chronic Qualifiers: Nicotine product type: cigarettes Substance use status: in withdrawal Qualified Code(s): F17.213 - Nicotine dependence, cigarettes, with withdrawal Cleared for Admission S - Detox or Rehab [facility] Level of Care: Medically Managed Detox Regimen/Protocol: Methadone/Librium [facility] Breath Alcohol Content Breath Alcohol Content: 0.240 Urine Drug Screen - Results Drug Screen Negative: No Urine Drug Screen Results: OPI-Opiates, BZO-Benzodiazepines
[2016-06-30] MEDS ORDERED: NICOTINE POLACRILEX 2 MG GUM BC PRN (13:06)
[2016-06-30] MEDS ORDERED: MAGNESIUM HYDROX 2400MG/30ML ORAL SUSPENSION 30 ML CUP PO PRN (13:06)
[2016-06-30] MEDS ORDERED: MENTHOL/PHENOL 1 EACH UD MM PRN (13:06)
[2016-06-30] MEDS ORDERED: guaiFENesin/D-METHORPHAN HB 10 ML UNIT-DOSE CUPS PO PRN (13:06)
[2016-06-30] MEDS ORDERED: MAG HYDROX/AL HYDROX/SIMETH 30 ML UNIT-DOSE CUP PO PRN (13:06)
[2016-06-30] MEDS ORDERED: ACETAMINOPHEN 325 MG TABLET (FP) PO PRN (13:06)
[2016-06-30] MEDS ORDERED: P-EPHED 60MG/TRIPROLIDI 2.5MG TABLET PO PRN (13:06)
[2016-06-30] MEDS ORDERED: MAGNESIUM CITRATE 300 ML BOTTLE PO PRN (13:06)
[2016-06-30] MEDS ORDERED: LOPERAMIDE HCL 2 MG CAPSULE PO PRN (13:06)
[2016-06-30] MEDS ORDERED: IBUPROFEN 400 MG TABLET (FP) PO PRN (13:06)
[2016-06-30] MEDS ORDERED: ALBUTEROL SO4 2.5/IPRATROPIUM 0.5 INH SOL 3 ML VIAL.NEB. NEB PRN ×2 (13:13→13:41)
[2016-06-30] MEDS ORDERED: METHADONE HCL 10 MG TABLET (FOR DETOX USE ONLY) PO ONE ×2 (13:45→23:00)
[2016-06-30] MEDS ORDERED: chlordiazePOXIDE HCL 25 MG CAPSULE PO ONE (13:45)
[2016-06-30] MEDS: NICOTINE 14 MG/24 HOURS TOPICAL PATCH TD SCH (13:46)
[2016-06-30] MEDS: ALBUTEROL SO4 2.5/IPRATROPIUM 0.5 INH SOL 3 ML VIAL.NEB. NEB SCH ×3 (13:48→22:18)
--- NOTE | 2016-06-30 13:55 | CONSULT ---
[facility] Psychiatric Consult - Data Date of interview: 06/30/16 Admission source: [facility] Identifying data: This is 40 years old male with no psychiatric hospitalization history intoxicated with: Alcohol Cocaine, Heroin and Nuicotine Substance Abuse History: - Smoking Cessation. Smoking history: Current every day smoker. Have you smoked in the past 12 months: Yes. Aproximately how many cigarettes per day: 10. Cigars Per Day: 0. Hx Chewing Tobacco Use: No. Initiated information on smoking cessation: Yes. 'Breaking Loose' booklet given : 06/30/16. - Substance & Tx. History. Hx Alcohol Use: Yes (BEER). Hx Substance Use: Yes (HEROIN/COCAINE). Substance Use Type: Alcohol, Cocaine, Heroin. Hx Substance Use Treatment: Yes ([facility]-DETOX). - Substances Abused. * * Heroin. Route: Inhalation. Frequency: Daily. Amount used: 6 bags. Age of first use: 40. Date of Last Use: 06/30/16. Alcohol. Route: Oral. Frequency: Daily. Amount used: 18 pk beer. Age of first use: 8. Date of Last Use: 06/30/16. Cocaine. Route: Inhalation. Frequency: 1-3 times last 30 days. Amount used: 8 ball. Age of first use: 12. Date of Last Use: Medical History: Asthma, GERD, HTN, HepC+ Psychiatric History: Patient reports anxiety and deporewssion history, ADHD, insomnia, reports taking prior to admission: Trazodone 150mg po qhs Physical/Sexual Abuse/Trauma History: Denies Additional Comment: Trazodone 150mg po qhs Mental Status Exam - Mental Status Exam Alert and Oriented to: Person Cognitive Function: Fair Patient Appearance: Well Groomed Mood: Apprehensive Affect: Mood Congruent Patient Behavior: Cooperative Speech Pattern: Appropriate Voice Loudness: Mildly Soft/Quiet Thought Process: Goal Oriented Thought Disorder: Being Controlled Hallucinations: Denies Suicidal Ideation: Denies Homicidal Ideation: Denies Insight/Judgement: Fair Sleep: Difficulty falling asleep Appetite: Weight gain Muscle strength/Tone: Normal Gait/Station: Normal Additional Comments: Trazodone 150mg po qhs Psychiatric Findings - Problem List ([place] 1, 2,3) (1) Alcohol dependence with uncomplicated withdrawal Current Visit: Yes Status: Acute (2) Depression with anxiety Current Visit: Yes Status: Chronic (3) Nicotine dependence Current Visit: Yes Status: Chronic Qualifiers: Nicotine product type: cigarettes Substance use status: in withdrawal Qualified Code(s): F17.213 - Nicotine dependence, cigarettes, with withdrawal (4) ADHD (attention deficit hyperactivity disorder), inattentive type Current Visit: No Status: Acute (5) Anxiety disorder Current Visit: No Status: Acute (6) Drug-induced mood disorder Current Visit: Yes Status: Acute - Initial Treatment Plan Initial Treatment Plan: Trazodone 150mg po qhs
[2016-06-30] MEDS: BUDESONIDE/FORMETEROL FUMARATE 80/4.5 mcg INHALER IH SCH ×2 (14:31→22:15)
[2016-06-30] MEDS: chlordiazePOXIDE HCL 25 MG CAPSULE PO SCH ×2 (17:06→22:16)
[2016-06-30 18:07] LABS: URINE APPEARANCE CLEAR; URINE BILIRUBIN NEGATIVE (NEGATIVE); URINE BLOOD NEGATIVE (NEGATIVE); URINE COLOR COLORLESS; URINE GLUCOSE (UA) NEGATIVE (NEGATIVE); URINE KETONE NEGATIVE (NEGATIVE); URINE LEUK ESTERASE NEGATIVE (NEGATIVE); URINE NITRITE NEGATIVE (NEGATIVE); URINE PROTEIN NEGATIVE (NEGATIVE); URINE UROBILINOGEN NEGATIVE E.U./dl (0.2-1.0)
[2016-06-30] MEDS: chlordiazePOXIDE HCL 25 MG CAPSULE PO PRN (18:57)
[2016-06-30] MEDS: traZODone HCL 50 MG TABLET (FP) PO SCH (22:16)
[2016-06-30] MEDS: THIAMINE HCL 100 MG TABLET (FP) PO SCH (22:16)
[2016-06-30] MEDS: diphenhydrAMINE HCL 50 MG CAPSULE PO PRN (22:17)
[2016-07-01] MEDS: chlordiazePOXIDE HCL 25 MG CAPSULE PO PRN ×3 (00:39→19:37)
[2016-07-01] MEDS: diphenhydrAMINE HCL 50 MG CAPSULE PO PRN (00:39)
[2016-07-01] MEDS: chlordiazePOXIDE HCL 25 MG CAPSULE PO SCH ×4 (05:57→22:12)
[2016-07-01] MEDS ORDERED: METHADONE HCL 10 MG TABLET (FOR DETOX USE ONLY) PO SCH (10:00)
[2016-07-01] MEDS: ALBUTEROL SO4 2.5/IPRATROPIUM 0.5 INH SOL 3 ML VIAL.NEB. NEB SCH ×2 (10:24→16:48)
[2016-07-01] MEDS: NICOTINE 14 MG/24 HOURS TOPICAL PATCH TD SCH (10:25)
[2016-07-01] MEDS: ALBUTEROL SO4 6.7 GM HFA INHALER IH PRN ×2 (10:25→17:21)
[2016-07-01] MEDS: PRENATAL VITAMINS W/ FOLIC ACID TABLET (FP) PO SCH (10:25)
[2016-07-01] MEDS: BUDESONIDE/FORMETEROL FUMARATE 80/4.5 mcg INHALER IH SCH ×2 (10:25→22:11)
[2016-07-01 10:34] LABS: MCHC 33.4 g/dl (32.0-35.9); MEAN CELL VOLUME 98.9 fl (80-96); MEAN PLT VOLUME 7.9 fl (7.5-11.1); PLATELET COUNT 147 K/MM3 (134-434); RDW 13.5 % (11.9-15.9); WHITE BLOOD COUNT 5.7 K/mm3 (4.0-10.0)
--- NOTE | 2016-07-01 10:35 | PN ---
[facility] CIWA - CIWA Score Nausea/Vomitin-Mild Nausea/No Vomiting Muscle Tremors: 4-Moderate,w/Arms Extend Anxiety: 3 Agitation: 4-Moderately Restless Paroxysmal Sweats: 3 Orientation: 0-Oriented Tacttile Disturbances: 0-None Auditory Disturbances: 0-None Visual Disturbances: 0-None Headache: 2-Mild CIWA-Ar Total Score: 17 BHS COWS - Scale Resting Pulse: 1= MS 81-100 Sweatin=Flushed/Facial Moisture Restless Observation: 1= Difficult to Sit Still Pupil Size: 0= Normal to Room Light Bone or Joint Aches: 2= Severe Diffuse Aches Runny Nose/ Eye Tearin= Runny Nose/Eyes GI Upset > 30mins: 2= Nausea/Diarrhea Tremor Observation of Outstretched Hands: 2= Slight Tremor Visible Yawning Observation: 2= >3x During Session Anxiety or Irritability: 2=Irritable/Anxious Goose Flesh Skin: 3=Piloerection COWS Score: 19 [facility] Progress Note (SOAP) Subjective: shakes sweats interrupted sleep nausea headache body aches Objective: 07/01/16 10:34 Vital Signs Temperature 97.9 F 07/01/16 10:01 Pulse Rate 93 H 07/01/16 10:01 Respiratory Rate 18 07/01/16 10:01 Blood Pressure 153/91 07/01/16 10:01 O2 Sat by Pulse Oximetry (%) Laboratory Tests 06/30/16 06/30/16 13:15 15:00 Urine Color Colorless Urine Appearance Clear Urine pH 7.0 Ur Specific [place] 1.002 Urine Protein Negative Urine Glucose (UA) Negative Urine Ketones Negative Urine Blood Negative Urine Nitrite Negative Urine Bilirubin Negative Urine Urobilinogen Negative Ur Leukocyte Esterase Negative Hepatitis C Antibody <0.1 labs pending awake/alert ambulating no acute distress Assessment: 07/01/16 10:57 withdrawal sx Plan: continue detox increase fluids clonidine 0.1mg bid labs pending
[2016-07-01 10:43] LABS: ANION GAP 14 (8-16); CALCIUM 9.1 mg/dL (8.5-10.1); CO2 28 mmol/L (21-32); GLUCOSE,RANDOM 88 mg/dL (74-106)
[2016-07-01 10:49] LABS: ALBUMIN 4.6 g/dl (3.4-5.0); ALK PHOS 96 U/L (45-117); BILIRUBIN,TOTAL 0.4 mg/dL (0.2-1.0); CREATININE 0.6 mg/dL (0.7-1.3); SGOT/AST 81 U/L (15-37); SGPT/ALT 67 U/L (12-78); TOT PROT 8.3 g/dl (6.4-8.2)
[2016-07-01] MEDS: cloNIDine HCL 0.1 MG TABLET PO SCH ×2 (10:54→22:12)
--- NOTE | 2016-07-01 11:07 | EKG ---
Test Reason : Blood Pressure : / mmHG Vent. Rate : 099 BPM Atrial Rate : 099 BPM P-R Int : 166 ms QRS Dur : 092 ms QT Int : 338 ms P-R-T Axes : 056 012 032 degrees QTc Int : 433 ms NORMAL SINUS RHYTHM NORMAL ECG WHEN COMPARED WITH ECG OF 30-MAY-2016 23:30, NO SIGNIFICANT CHANGE WAS FOUND Confirmed by CANDIDO COLLINS MD ([id number]) on 07/01/2016 11:07:26 AM Referred By: Confirmed By:CANDIDO COLLINS MD
[2016-07-01] MEDS: THIAMINE HCL 100 MG TABLET (FP) PO SCH (22:12)
[2016-07-01] MEDS: traZODone HCL 50 MG TABLET (FP) PO SCH (22:12)
[2016-07-02] MEDS: chlordiazePOXIDE HCL 25 MG CAPSULE PO SCH ×2 (05:23→10:24)
[2016-07-02] MEDS: chlordiazePOXIDE HCL 25 MG CAPSULE PO PRN ×3 (08:38→19:56)
[2016-07-02] MEDS: cloNIDine HCL 0.1 MG TABLET PO SCH ×2 (10:24→22:06)
[2016-07-02] MEDS: PRENATAL VITAMINS W/ FOLIC ACID TABLET (FP) PO SCH (10:24)
[2016-07-02] MEDS: METHADONE HCL 5 MG TABLET (FOR DETOX USE ONLY) PO SCH (10:24)
[2016-07-02] MEDS: ALBUTEROL SO4 6.7 GM HFA INHALER IH PRN ×2 (10:24→17:08)
[2016-07-02] MEDS: BUDESONIDE/FORMETEROL FUMARATE 80/4.5 mcg INHALER IH SCH ×2 (10:24→22:06)
[2016-07-02] MEDS: ALBUTEROL SO4 2.5/IPRATROPIUM 0.5 INH SOL 3 ML VIAL.NEB. NEB SCH ×4 (10:27→22:09)
[2016-07-02] MEDS: NICOTINE 14 MG/24 HOURS TOPICAL PATCH TD SCH (10:27)
--- NOTE | 2016-07-02 10:28 | PN ---
[facility] CIWA - CIWA Score Nausea/Vomitin Muscle Tremors: 3 Anxiety: 3 Agitation: 3 Paroxysmal Sweats: 3 Orientation: 0-Oriented Tacttile Disturbances: 1-Very Mild Itch/Numbness Auditory Disturbances: 0-None Visual Disturbances: 0-None Headache: 0-None Present CIWA-Ar Total Score: 16 S COWS - Scale Resting Pulse: 1= MS 81-100 Sweatin=Flushed/Facial Moisture Restless Observation: 1= Difficult to Sit Still Pupil Size: 1= Pupils >than Normal Bone or Joint Aches: 1= Mild Discomfort Runny Nose/ Eye Tearin= Nasal Congestion GI Upset > 30mins: 1= Stomach Cramp Tremor Observation of Outstretched Hands: 2= Slight Tremor Visible Yawning Observation: 0= None Anxiety or Irritability: 2=Irritable/Anxious Goose Flesh Skin: 0=Smooth Skin COWS Score: 12 S Progress Note (SOAP) Subjective: interrupted sleep, sweats , shakes , constipation Objective: 07/02/16 10:25 Vital Signs Temperature 98.4 F 07/02/16 10:14 Pulse Rate 89 07/02/16 10:14 Respiratory Rate 16 07/02/16 10:14 Blood Pressure 134/69 07/02/16 10:14 O2 Sat by Pulse Oximetry (%) Laboratory Tests 06/30/16 06/30/16 07/01/16 13:15 15:00 06:00 WBC 5.7 RBC 4.81 Hgb 15.9 D Hct 47.6 MCV 98.9 H MCHC 33.4 RDW 13.5 Plt Count 147 D MPV 7.9 Sodium Potassium Chloride Carbon Dioxide Anion Gap BUN Creatinine Creat Clearance w eGFR Random Glucose Calcium Total Bilirubin AST ALT Alkaline Phosphatase Total Protein Albumin Urine Color Colorless Urine Appearance Clear Urine pH 7.0 Ur Specific [place] 1.002 Urine Protein Negative Urine Glucose (UA) Negative Urine Ketones Negative Urine Blood Negative Urine Nitrite Negative Urine Bilirubin Negative Urine Urobilinogen Negative Ur Leukocyte Esterase Negative RPR Titer Hepatitis C Antibody <0.1 07/01/16 07/01/16 06:00 06:00 WBC RBC Hgb Hct MCV MCHC RDW Plt Count MPV Sodium 144 Potassium 3.7 Chloride 102 Carbon Dioxide 28 Anion Gap 14 BUN 5 L D Creatinine 0.6 L D Creat Clearance w eGFR > 60 Random Glucose 88 Calcium 9.1 Total Bilirubin 0.4 D AST 81 H D ALT 67 D Alkaline Phosphatase 96 D Total Protein 8.3 H Albumin 4.6 Urine Color Urine Appearance Urine pH Ur Specific [place] Urine Protein Urine Glucose (UA) Urine Ketones Urine Blood Urine Nitrite Urine Bilirubin Urine Urobilinogen Ur Leukocyte Esterase RPR Titer Nonreactive Hepatitis C Antibody pt aox3 anxious, mirelaky Assessment: 07/02/16 10:26 withdrawal sx's elevated transaminases Plan: cont.detox increase fluids d/c tylenol prn librium
[2016-07-02] MEDS: chlordiazePOXIDE 5 MG CAPSULE PO SCH ×2 (17:07→22:07)
[2016-07-02] MEDS: traZODone HCL 50 MG TABLET (FP) PO SCH (22:06)
[2016-07-02] MEDS: THIAMINE HCL 100 MG TABLET (FP) PO SCH (22:06)
[2016-07-02] MEDS: diphenhydrAMINE HCL 50 MG CAPSULE PO PRN (22:08)
[2016-07-03] MEDS: chlordiazePOXIDE 5 MG CAPSULE PO SCH ×2 (05:53→10:30)
[2016-07-03] MEDS: chlordiazePOXIDE HCL 25 MG CAPSULE PO PRN ×2 (08:46→12:48)
--- NOTE | 2016-07-03 08:47 | PN ---
[facility] Progress Note (SOAP) Subjective: shakes sweats anxious Objective: 07/03/16 08:47 Vital Signs Temperature 97.3 F L 07/03/16 07:23 Pulse Rate 73 07/03/16 07:23 Respiratory Rate 18 07/03/16 07:23 Blood Pressure 102/76 07/03/16 07:23 O2 Sat by Pulse Oximetry (%) awake/alert ambulating no acute distress Assessment: 07/03/16 08:47 withdrawal sx Plan: continue detox increase fluids
[2016-07-03] MEDS: ALBUTEROL SO4 2.5/IPRATROPIUM 0.5 INH SOL 3 ML VIAL.NEB. NEB SCH ×3 (10:29→22:15)
[2016-07-03] MEDS: cloNIDine HCL 0.1 MG TABLET PO SCH ×2 (10:30→22:13)
[2016-07-03] MEDS: METHADONE HCL 5 MG TABLET (FOR DETOX USE ONLY) PO SCH (10:30)
[2016-07-03] MEDS: BUDESONIDE/FORMETEROL FUMARATE 80/4.5 mcg INHALER IH SCH ×2 (10:30→22:13)
[2016-07-03] MEDS: NICOTINE 14 MG/24 HOURS TOPICAL PATCH TD SCH (10:31)
[2016-07-03] MEDS: PRENATAL VITAMINS W/ FOLIC ACID TABLET (FP) PO SCH (10:31)
[2016-07-03] MEDS: ALBUTEROL SO4 6.7 GM HFA INHALER IH PRN (12:46)
[2016-07-03] MEDS: hydrOXYzine PAMOATE 25 MG CAPSULE (FP) PO PRN (14:51)
[2016-07-03] MEDS: chlordiazePOXIDE HCL 10 MG CAPSULE PO SCH ×2 (17:45→22:13)
[2016-07-03] MEDS: traZODone HCL 50 MG TABLET (FP) PO SCH (22:13)
[2016-07-03] MEDS: THIAMINE HCL 100 MG TABLET (FP) PO SCH (22:13)
[2016-07-04] MEDS: chlordiazePOXIDE HCL 10 MG CAPSULE PO SCH ×2 (05:04→10:20)
[2016-07-04] MEDS: ALBUTEROL SO4 6.7 GM HFA INHALER IH PRN ×3 (05:05→22:08)
--- NOTE | 2016-07-04 08:54 | PN ---
[facility] Progress Note (SOAP) Subjective: sweats nausea Objective: 07/04/16 08:53 Vital Signs Temperature 98.2 F 07/04/16 06:40 Pulse Rate 71 07/04/16 06:40 Respiratory Rate 18 07/04/16 06:40 Blood Pressure 118/76 07/04/16 06:40 O2 Sat by Pulse Oximetry (%) awake/alert ambulating no acute distress Assessment: 07/04/16 08:53 withdrawal sx Plan: continue detox increase fluids
[2016-07-04] MEDS: hydrOXYzine PAMOATE 25 MG CAPSULE (FP) PO PRN ×4 (09:02→22:10)
[2016-07-04] MEDS ORDERED: METHADONE HCL 10 MG TABLET (FOR DETOX USE ONLY) PO SCH (10:00)
[2016-07-04] MEDS: PRENATAL VITAMINS W/ FOLIC ACID TABLET (FP) PO SCH (10:20)
[2016-07-04] MEDS: NICOTINE 14 MG/24 HOURS TOPICAL PATCH TD SCH (10:20)
[2016-07-04] MEDS: BUDESONIDE/FORMETEROL FUMARATE 80/4.5 mcg INHALER IH SCH ×2 (10:20→22:07)
[2016-07-04] MEDS: cloNIDine HCL 0.1 MG TABLET PO SCH ×2 (10:20→22:08)
[2016-07-04] MEDS: ALBUTEROL SO4 2.5/IPRATROPIUM 0.5 INH SOL 3 ML VIAL.NEB. NEB SCH ×2 (10:21→17:55)
[2016-07-04] MEDS: traZODone HCL 50 MG TABLET (FP) PO SCH (22:08)
[2016-07-04] MEDS: THIAMINE HCL 100 MG TABLET (FP) PO SCH (22:09)
[2016-07-04 22:17] VITALS: TEMP 98.1
[2016-07-05] MEDS ORDERED: METHADONE HCL 5 MG TABLET (FOR DETOX USE ONLY) PO SCH (06:00)
[2016-07-05] MEDS: hydrOXYzine PAMOATE 25 MG CAPSULE (FP) PO PRN (06:25)
[2016-07-05 07:51] VITALS: BP 121/76; PULSE 76
--- NOTE | 2016-07-05 11:35 | DS ---
[facility] Detox Discharge Summary Admission Date: 06/30/16 Discharge Date: 07/05/16 - History Present History: Alcohol Dependence Pertinent Past History: ADHD GERD HTN - Physical Exam Results Vital Signs: Vital Signs Temperature 98.1 F 07/05/16 06:00 Pulse Rate 76 07/05/16 06:00 Respiratory Rate 20 07/05/16 06:00 Blood Pressure 121/76 07/05/16 06:00 O2 Sat by Pulse Oximetry (%) Pertinent Admission Physical Exam Findings: Withdrawal sx. Laboratory Tests 06/30/16 06/30/16 07/01/16 13:15 15:00 06:00 WBC 5.7 RBC 4.81 Hgb 15.9 D Hct 47.6 MCV 98.9 H MCHC 33.4 RDW 13.5 Plt Count 147 D MPV 7.9 Sodium Potassium Chloride Carbon Dioxide Anion Gap BUN Creatinine Creat Clearance w eGFR Random Glucose Calcium Total Bilirubin AST ALT Alkaline Phosphatase Total Protein Albumin Urine Color Colorless Urine Appearance Clear Urine pH 7.0 Ur Specific [place] 1.002 Urine Protein Negative Urine Glucose (UA) Negative Urine Ketones Negative Urine Blood Negative Urine Nitrite Negative Urine Bilirubin Negative Urine Urobilinogen Negative Ur Leukocyte Esterase Negative RPR Titer Hepatitis C Antibody <0.1 07/01/16 07/01/16 06:00 06:00 WBC RBC Hgb Hct MCV MCHC RDW Plt Count MPV Sodium 144 Potassium 3.7 Chloride 102 Carbon Dioxide 28 Anion Gap 14 BUN 5 L D Creatinine 0.6 L D Creat Clearance w eGFR > 60 Random Glucose 88 Calcium 9.1 Total Bilirubin 0.4 D AST 81 H D ALT 67 D Alkaline Phosphatase 96 D Total Protein 8.3 H Albumin 4.6 Urine Color Urine Appearance Urine pH Ur Specific [place] Urine Protein Urine Glucose (UA) Urine Ketones Urine Blood Urine Nitrite Urine Bilirubin Urine Urobilinogen Ur Leukocyte Esterase RPR Titer Nonreactive Hepatitis C Antibody labs noted - Treatment Hospital Course: Detox Protocol Followed, Detoxed Safely, Responded well, Discharged Condition Good, Rehab Referral Accepted Patient has Accepted a Rehab Referral to: [facility] on thursday07/07/16 - Medication Discharge Medications: Ambulatory Orders Albuterol Sulfate Inhaler - [Ventolin HFA Inhaler -] 2 inh PO Q4H PRN 10/10/14 Trazodone HCl [Desyrel -] 150 mg PO HS #30 tablet 05/05/16 Trazodone HCl [Desyrel -] 150 mg PO HS #30 tablet 06/30/16 Clonidine HCl [Catapres -] 0.1 mg PO BID #4 tablet 07/04/16 Hydroxyzine Pamoate [Vistaril -] 25 mg PO TID PRN #6 07/04/16 - Diagnosis (1) ADHD (attention deficit hyperactivity disorder), inattentive type Status: Acute (2) Alcohol dependence with uncomplicated withdrawal Status: Acute (3) Drug-induced mood disorder Status: Acute (4) Asthma Status: Chronic Qualifiers: Asthma severity: mild intermittent Asthma complication type: with status asthmaticus Qualified Code(s): J45.22 - Mild intermittent asthma with status asthmaticus (5) GERD (gastroesophageal reflux disease) Status: Chronic Qualifiers: Esophagitis presence: without esophagitis Qualified Code(s): K21.9 - Gastro-esophageal reflux disease without esophagitis (6) HTN (hypertension) Status: Chronic Qualifiers: Hypertension type: essential hypertension Qualified Code(s): I10 - Essential (primary) hypertension (7) Insomnia Status: Chronic (8) Nicotine dependence Status: Chronic Qualifiers: Nicotine product type: cigarettes Substance use status: in withdrawal Qualified Code(s): F17.213 - Nicotine dependence, cigarettes, with withdrawal - AMA Did Patient Leave Against Medical Advice: No
== END 2016-07-05 09:59 | disposition home or self-care (01) | DRG 775 ==
LOC: YASAS 09:28 → Y6N 12:28
PROVIDERS: ADMIT Internal Medicine Addiction Medicine; ATTEND Internal Medicine Addiction Medicine
DX: F10.230 Alcohol dependence with withdrawal, uncomplicated (principal); F17.213 Nicotine dependence, cigarettes, with withdrawal; G47.00 Insomnia, unspecified; I10 Essential (primary) hypertension; K21.9 Gastro-esophageal reflux disease without esophagitis; F90.9 Attention-deficit hyperactivity disorder, unspecified type; F19.24 Other psychoactive substance dependence with psychoactive substance-induced mood disorder; F41.9 Anxiety disorder, unspecified
CPT/HCPCS: 36415; 80053; 81003; 85027; 86593; 93005; 93010; 94640